=== PATIENT | female | born 1990 ===

== ENCOUNTER 2022-03-15 20:34 | Outpatient (CLI) | payer OTHER ==
[~2022-03-15] VITALS: Ht 170.2 cm; Wt 90.7 kg
[2022-03-15] MEDS ORDERED: PRENA1 CHEW TA1.4 MG PO (21:39)
[2022-03-15] MEDS ORDERED: PRENATAL CAPLE1 EAC1 PO (21:40)
== END 2022-03-16 13:54 | disposition home or self-care (01) ==
LOC: OBS/DEL 20:34
PROVIDERS: ATTEND Obstetrics & Gynecology
DX: O26.893 Other specified pregnancy related conditions, third trimester (principal); Z3A.37 37 weeks gestation of pregnancy; M94.0 Chondrocostal junction syndrome [Tietze]

== ENCOUNTER 2022-03-29 00:59 | Inpatient (IN) | payer OTHER ==
[~2022-03-29] VITALS: Ht 167.6 cm; Wt 90.7 kg
[~2022-03-29 00:59] MED LIST: PRENA1 CHEW TA1.4 MG PO; PRENATAL CAPLE1 EAC1 PO
== END 2022-03-31 11:36 | disposition home or self-care (01) | DRG 807 ==
LOC: OB/GYN 00:59 → LDR 00:59 → OB/GYN 07:17
PROVIDERS: ADMIT Obstetrics & Gynecology; ATTEND Obstetrics & Gynecology
PROC: 10E0XZZ Delivery of Products of Conception, External Approach (ICD-10-PCS; principal; 2022-03-29)
PROC: 0KQM0ZZ Repair Perineum Muscle, Open Approach (ICD-10-PCS; 2022-03-29)
PROC: 4A1HXCZ Monitoring of Products of Conception, Cardiac Rate, External Approach (ICD-10-PCS; 2022-03-29)
DX: O70.1 Second degree perineal laceration during delivery (principal); Z37.0 Single live birth; Z3A.39 39 weeks gestation of pregnancy; Z20.822 Contact with and (suspected) exposure to COVID-19